=== PATIENT | male | born 1985 | race Caucasian/White ===

== ENCOUNTER 2024-03-21 22:56 | Emergency (ER) | payer OTHER ==
[2024-03-21] MEDS ORDERED: Ondansetron PF 4 MG/2 ML Vial ONE (23:30)
[2024-03-21] MEDS ORDERED: Ibuprofen 600 MG TAB ONE (23:30)
[2024-03-21] MEDS ORDERED: Sodium Chloride 0.9% 1,000 ML ONE (23:30)
[2024-03-22 00:10] LABS: Hematocrit 54.7 % (42.0-52.0); Hemoglobin 16.5 g/dL (14.0-18.0); Mean Corpuscular HGB CONC 30.2 g/dL (32.0-36.0); Mean Corpuscular Hemoglobin 26.1 pg (27.0-31.0); Mean Corpuscular Volume 86.4 fl (78.0-98.0); Mean Platelet Volume 6.1 fL (7.4-10.4); Platelet Count 266 10x3/uL (130-400); RBC Distribution Width 13.8 % (11.5-14.5); Red Blood Cell (RBC) Count 6.33 mill/uL (4.70-6.10); White Blood Cell (WBC) Count 13.2 10x3/uL (4.8-10.8)
[2024-03-22 00:11] LABS: ALT (SGPT) 36 U/L (8-55); AST (SGOT) 17 U/L (5-34); Albumin 3.9 g/dL (3.5-5.0); Alkaline Phosphatase 71 U/L (40-110); Anion Gap 15 mmol/L (10-20); BUN (Urea Nitrogen) 13 mg/dL (8.9-20.6); Bilirubin, Total 0.7 mg/dL (0.2-1.2); Calc. Creatinine Clearance 0 mL/min (70-130); Calcium 9.1 mg/dL (7.8-10.44); Carbon Dioxide 20 mmol/L (22-29); Chloride 109 mmol/L (98-107); Estimated GFR 61; Globulin 3.1 g/dL (2.4-3.5); Glucose 119 mg/dL (70-105); Lipase 17 U/L (8-78); Magnesium 1.5 mg/dL (1.6-2.6); Potassium 3.9 mmol/L (3.5-5.1); Sodium 140 mmol/L (136-145)
[2024-03-22 00:15] LABS: MDiff Complete? YES; Manual Diff?? YES; Neutrophil 88 % (42-75)
[2024-03-22 00:16] LABS: Anisocytosis SLIGHT = 6-15 cells (100X) (0-5/hpf); Band 5 % (5-11); Hypochromia SLIGHT = 6-15 cells (100X) (0-5/hpf); Lymphocytes 4 % (21-51); Monocytes 3 % (0-10); Platelet Adequacy Comment Appears Adequate
[2024-03-22] MEDS ORDERED: Sodium Chloride 0.9% 1,000 ML ONE (00:25)
[2024-03-22] MEDS ORDERED: Magnesium 2 GM/50 ML BAG (IN WATER) ONE (00:25)
[2024-03-22] MEDS ORDERED: Azithromycin 250 MG TAB ONE (00:27)
[2024-03-22 00:31] LABS: Influenza A by NAA Not Detected (NotDetected); Influenza B by NAA Not Detected (NotDetected); SARS-CoV-2 NAA Rapid Test Not Detected (NotDetected)
[2024-03-22 23:40] LABS: Campy jejuni + coli by PCR Negative (Negative); STEC Shiga Toxin 1+2 Negative (Negative); Salmonella spp. by PCR POSITIVE (Negative); Shigella spp + EIEC by PCR Negative (Negative)
== END 2024-03-22 01:35 | disposition home or self-care (01) ==
LOC: MADERS 22:56
DX: R19.7 Diarrhea, unspecified (principal); N17.9 Acute kidney failure, unspecified; E86.0 Dehydration
CPT/HCPCS: 80053; 83690; 83735; 85025; 87505; 93005; 96361; 96365; 96375; J2405; J3475; J7030